=== PATIENT | male | born 1975 | race Caucasian/White ===

== ENCOUNTER 2016-08-11 19:47 | Emergency (ER) | payer BC ==
[~2016-08-11] VITALS: Ht 185.4 cm; Wt 104.3 kg
[2016-08-11 19:47] VITALS: BP 159/113; PULSE 82; RESP 20; TEMP 98; O2SAT 99
[2016-08-11] MEDS ORDERED: fentaNYL CITRATE/PF 100 MCG/2 ML AMP IM ONE (22:45)
[2016-08-11 23:12] VITALS: BP 145/99; PULSE 86; RESP 18; TEMP 98
[2016-08-12 01:38] VITALS: O2SAT 99
== END 2016-08-11 23:12 | disposition home or self-care (01) ==
LOC: SED 19:47
DX: S39.012A Strain of muscle, fascia and tendon of lower back, initial encounter (principal); R03.0 Elevated blood-pressure reading, without diagnosis of hypertension; X58.XXXA Exposure to other specified factors, initial encounter; Y93.89 Activity, other specified; Y99.8 Other external cause status; Y92.89 Other specified places as the place of occurrence of the external cause
CPT/HCPCS: 72100; 99284; J3010